=== PATIENT | female | born 1985 | race Caucasian/White ===

== ENCOUNTER 2023-12-22 13:34 | Outpatient (REF) | payer OTHER, SELFPAY ==
[2023-12-24 21:23] LABS: Venous Lead <1.0 mcg/dL (<3.5)
== END 2023-12-22 13:35 | disposition home or self-care (01) ==
LOC: HO.HMGCLDS 13:34
PROVIDERS: PCP Internal Medicine; Visit Provider Registered Nurse
DX: Z59.19 Other inadequate housing (principal); Z77.011 Contact with and (suspected) exposure to lead
CPT/HCPCS: 36415; 83655; 99212

== ENCOUNTER 2023-12-22 13:34 | Outpatient (AMB) | payer OTHER, SELFPAY ==
--- NOTE | 2023-12-22 13:36 | AM.OFFWIN_ITS ---
Intake Vital Signs 12/22/23 13:37 Height 5 ft 6 in Weight 126 lb BMI 20.3 BP 106/70 Blood Pressure Location Rt brachial Position Sitting Pulse 79 Pulse Source Pulse Oximeter Pulse Oximetry (%) 99 Intake Visit Reasons: [employer] Lead concerns Intake Note: pt is here for Lead concerns, patient would like testing Allergies No Known Allergies Allergy (Verified 12/22/23 13:37) Do you need a note to return to daycare/school/sports/work: No HPI [employer] Lead concerns HPI Details This note is constructed using voice recognition software. 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 The patient is a 38 year old female who presents to the clinic today with concerns for lead exposure. Patient reports that she received a letter from the [facility] stating that her home maybe surface by pipes that have led in them. The letter suggested that she have her water and pipes tested, however the pricing for the testing is very expensive, and she is unable to afford that at this time. She is concerned that she may have been exposed to lead, and wishes to be tested for this. She denies nausea, vomiting, memory issues. She does report chronic anxiety and some chronic headaches, but these have been ongoing for a long period of time. She currently does not have a primary care provider, and is having difficulty locating 1. Review of Systems Const All systems reviewed & are unremarkable except as noted in HPI and below Physical Exam Vital Signs: BMI result Body Mass Index 20.3 Const General: cooperative, healthy appearing, comfortable, no acute distress and well developed Orientation/consciousness: patient oriented x3 Limitations: no limitations Eyes General: appearance normal, both eyes and all related structures Resp Effort & Inspection: normal respiratory effort and able to speak in complete sentences Auscultation: clear to auscultation bilaterally Cardio Rate: regular rate Rhythm: regular rhythm Heart sounds: normal S1 and S2 GI Inspection: Yes normal to inspection Palpation (GI): Soft to palpation and nontender Skin General skin exam: no rashes or lesions noted Neuro General: patient oriented x3 Extrem General: Yes normal to inspection Assessment & Plan Assessment & Plan (1) 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 I reviewed with her the importance of having her home tested as well given that she may not show a level elevated if she has not been exposed for a long period of time, but could prevent that exposure by removing the source. Plan See above for full details and plan. Advised patient to speak with front end staff on exiting the office to determine whom may be accepting new patients for primary care providers. Orders: Orders Venous Lead Today Z59.19 - Other inadequate housing, Z77.011 - Contact with and (suspected) exposure to lead Coding Level of Care Code Est Pt Level 3 (06594) Diagnoses Lead in residence Z77.011; Z59.19
[2023-12-22 13:37] VITALS: BP 106/70; PULSE 79; O2SAT 99; BMI 20.3
== END 2023-12-22 14:56 | disposition home or self-care (01) ==
PROVIDERS: Visit Provider Registered Nurse
DX: Z77.011 Contact with and (suspected) exposure to lead (principal); Z59.19 Other inadequate housing

== ENCOUNTER 2023-12-30 11:53 | Outpatient (REF) | payer OTHER, SELFPAY ==
[2023-12-30 16:46] LABS: Influenza A PCR NEGATIVE (Negative); Influenza B PCR NEGATIVE (Negative); Resp Syncy Virus RNA Qual PCR NEGATIVE (Negative); SARS COV2 PCR INHOUSE NEGATIVE (Negative)
== END 2023-12-30 11:54 | disposition home or self-care (01) ==
LOC: HO.LAB 11:53
PROVIDERS: Visit Provider Physician Assistant
DX: J06.9 Acute upper respiratory infection, unspecified (principal); J02.9 Acute pharyngitis, unspecified; J04.0 Acute laryngitis
CPT/HCPCS: 0241U; 87070; 87147; 99202

== ENCOUNTER 2023-12-30 11:53 | Outpatient (AMB) | payer OTHER, SELFPAY ==
--- NOTE | 2023-12-30 12:01 | AM.OFFWIN_ITS ---
Intake Vital Signs 12/30/23 12:02 Height 5 ft 6 in Weight 126 lb BMI 20.3 BP 102/60 Blood Pressure Location Rt brachial Position Sitting Pulse 68 Pulse Source Pulse Oximeter Temp 98.4 F Temp Source Oral Pulse Oximetry (%) 98 Oxygen Delivery Method Room Air Intake Visit Reasons: EP-sore throat Intake Note: Patient here for sore throat that started yesterday Patient Tobacco Use Status: Never used Tobacco Allergies No Known Allergies Allergy (Verified 12/30/23 12:03) Do you need a note to return to daycare/school/sports/work: No HPI HPI Comments History of Present Illness Details The patient is a 38-year-old female presenting with a sore throat and mild cough. These symptoms began yesterday morning, initially feeling like irritation from mouth breathing during the night. Upon waking, the sore throat persisted and was noted to be erythematous upon inspection. The patient has experienced a constant need to clear her throat since onset. She reports an intermittent, mild cough but denies experiencing fever, significant nasal congestion, sinus pressure, headache, or earaches. She has a history of recurrent sinus issues but currently describes only minor sinus-related symptoms. The patient denies recent exposure to individuals with strep throat and is not employed in settings with children. She occasionally experiences postnasal drip but does not feel stuffy. The patient consumes hot tea with honey, popsicles, and throat lozenges for symptom relief. There are no reported modifications in symptoms from these measures. Rapid strep test results are negative, and a throat culture has been obtained. The patient has a history of tonsil stones but reports no current formation. She denies wheezing or shortness of breath. COVID-19 is considered, and testing has been performed. [facility] Social History Patient Tobacco Use Status: Never used Tobacco Review of Systems Const All systems reviewed & are unremarkable except as noted in HPI and below Physical Exam Vital Signs: Last Vital Signs Temp 98.4 F 12/30/23 12:02 Pulse 68 12/30/23 12:02 BP 102/60 12/30/23 12:02 Pulse Ox 98 12/30/23 12:02 Oxygen Delivery Method Room Air 12/30/23 12:02 BMI result Body Mass Index 20.3 General: Cooperative, healthy appearing, comfortable and no acute distress Orientation/consciousness: Patient oriented x3 Limitations: No limitations Head: Normal to inspection Ears: Hearing grossly normal bilaterally, external ears normal and TM's normal bilaterally Nose: Normal external nose present, Normal nares present and No nasal discharge present Face and sinus: Normal facial exam and Yes sinuses nontender Mouth: Normal oral and palatal mucosa present and moist mucous membranes Throat: Yes tonsils normal, Yes uvula midline. Posterior oropharynx erythema Eyes: Appearance normal, both eyes and all related structures Neck: Normal visual inspection Respirtory: Clear to auscultation bilaterally. Normal respiratory effort, able to speak in complete sentences, no respiratory distress, not tachypneic, no tripod positioning and no use of accessory muscles Cardiovascular: Regular rate and rhythm. Normal S1 and S2 Skin: No rashes or lesions noted Neuro: Patient oriented x3 Extremities: Normal to inspection and Yes no clubbing, cyanosis or edema Assessment & Plan Assessment & Plan (1) Acute viral laryngitis: Code(s): J04.0 - Acute laryngitis Plan: - Monitor symptoms and encourage supportive care including hydration, rest, and use of throat lozenges and warm fluids. - Rapid strep in office is negative. Await results of throat culture to rule out bacterial infection. If bacterial growth is detected, we will initiating antibiotic therapy. - COVID-19, flu and RSV testing has been completed; await results and manage accordingly if positive. - Advise patient to return if symptoms significantly worsen or new symptoms develop, especially fever or white oral lesions. Orders: Orders Throat Culture Today J02.9 - Acute pharyngitis, unspecified SARS-CoV2/FLU/RSV Today J06.9 - Acute upper respiratory infection, unspecified Coding Level of Care Code New Pt Level 3 (91314) Diagnoses Acute viral laryngitis J04.0
[2023-12-30 12:02] VITALS: BP 102/60; PULSE 68; TEMP 36.9; O2SAT 98; BMI 20.3
== END 2023-12-30 12:37 | disposition home or self-care (01) ==
PROVIDERS: Visit Provider Physician Assistant
DX: J04.0 Acute laryngitis (principal)

== ENCOUNTER 2023-12-31 11:39 | Outpatient (AMB) | payer OTHER, SELFPAY ==
--- NOTE | 2023-12-31 11:42 | MHC.OFFWIV ---
Intake Vital Signs 12/31/23 11:52 Height 5 ft 6 in Weight 126 lb BMI 20.3 BP 110/76 Blood Pressure Location Lt brachial Position Sitting Pulse 80 Pulse Source Pulse Oximeter Temp 98.2 F Temp Source Oral Pulse Oximetry (%) 98 Intake Visit Reasons: EP sore throat, ? sinus infection Intake Note: pt is here for sinus infection, stated throat feels better today Patient Tobacco Use Status: Never used Tobacco Allergies No Known Allergies Allergy (Verified 12/31/23 11:52) Do you need a note to return to daycare/school/sports/work: Yes HPI HPI Comments History of Present Illness Details 38 y/o female patient who presents to the clinic with c/o Sinus congestion and pressure since this morning. She was seen yesterday for Sore-throat and mild cough. She was diagnosed with laryngitis and throat culture still pending. Denies nausea, vomiting, fevers or chills. Denies SOB but it's hard to breath through nose due to congestion. Denies CP, or wheezing. She does report h/o Sinus infections in the past, where she is always prescribed Antibiotics with some good relief. Today wondering if she has another Sinus infection. [facility] Social History Patient Tobacco Use Status: Never used Tobacco Review of Systems Const All systems reviewed & are unremarkable except as noted in HPI and below Physical Exam Vital Signs: Last Vital Signs Temp 98.2 F 12/31/23 11:52 Pulse 80 12/31/23 11:52 BP 110/76 12/31/23 11:52 Pulse Ox 98 12/31/23 11:52 BMI result Body Mass Index 20.3 Const General: cooperative and no acute distress Nutritional Appearance: thin Orientation/consciousness: patient oriented x3 HEENT Head: Yes normocephalic Ears: external ears normal and TM abnormal with fluid behind the TM General nose exam: Abnormal mucous membranes and turbinates present boggy and erythematous and Nasal discharge present Face and sinus: Yes sinus tenderness Mouth: moist mucous membranes Resp Effort & Inspection: normal respiratory effort Auscultation: clear to auscultation bilaterally, no crackles, no rales, no rhonchi and no wheezes Cardio Heart sounds: S1 normal heart sound present and S2 normal heart sound present Neuro General: patient oriented x3 Assessment & Plan Assessment & Plan (1) URI (upper respiratory infection): Code(s): J06.9 - Acute upper respiratory infection, unspecified Qualifiers: URI type: unspecified URI Qualified Code(s): J06.9 - Acute upper respiratory infection, unspecified Plan: Throat culture still pending, if positive for Bacteria will Tx then Ordered Sudafed Advised the use of Vicks Vapor Rest, and hydrate well with warm fluids Acetaminophen for pain relief. Medications: New pseudoephedrine HCl ER (Sudafed 12 Hour) 120 mg PO Q12H 60 tabs 0RF J06.9 - Acute upper respiratory infection, unspecified Coding Level of Care Code Est Pt Level 3 (46720) Diagnoses Upper respiratory tract infection, unspecified type J06.9 URI type: unspecified URI Time Spent (min) 15
[2023-12-31 11:52] VITALS: BP 110/76; PULSE 80; TEMP 36.8; O2SAT 98; BMI 20.3
== END 2023-12-31 12:51 | disposition home or self-care (01) ==
PROVIDERS: Visit Provider Nurse Practitioner Family
DX: J06.9 Acute upper respiratory infection, unspecified (principal)

== ENCOUNTER → 2023-12-31 11:39 | Outpatient (BNVA) | payer OTHER, SELFPAY | PROVIDERS: Visit Provider Nurse Practitioner Family | DX: J06.9 Acute upper respiratory infection, unspecified (principal) | CPT/HCPCS: 99212 ==

== ENCOUNTER 2025-01-12 12:48 | Outpatient (AMB) | payer OTHER, SELFPAY ==
[2025-01-12 13:03] VITALS: BP 108/62; PULSE 71; TEMP 36.6; O2SAT 99; BMI 22.1
--- NOTE | 2025-01-12 13:03 | AM.OFFWIN_ITS ---
Intake Vital Signs 01/12/25 13:03 Height 5 ft 6 in Weight 137 lb BMI 22.1 BP 108/62 Blood Pressure Location Lt brachial Position Sitting Pulse 71 Pulse Source Pulse Oximeter Temp 98 F Temp Source Oral Pulse Oximetry (%) 99 Oxygen Delivery Method Room Air Intake Visit Reasons: EP Irriatted patch of skin on right hand Intake Note: Patient presents c/o ring shaped spot on knuckle of right index finger Patient Tobacco Use Status: Never used Tobacco Allergies No Known Allergies Allergy (Verified 01/12/25 13:06) Do you need a note to return to daycare/school/sports/work: No HPI EP Irriatted patch of skin on right hand HPI Details 39 year old female patient who presents with an itchy/reddened area on her right first knuckle for the last several days. She does have a history of dry skin and eczema, however this appears somewhat different and is not responding to her usual home remedies for eczema. No known exposure to any new products/chemicals/lotions. [facility] Social History Patient Tobacco Use Status: Never used Tobacco Review of Systems Const All systems reviewed & are unremarkable except as noted in HPI and below Physical Exam Vital Signs: Last Vital Signs Temp 98 F 01/12/25 13:03 Pulse 71 01/12/25 13:03 BP 108/62 01/12/25 13:03 Pulse Ox 99 01/12/25 13:03 Oxygen Delivery Method Room Air 01/12/25 13:03 BMI result Body Mass Index 22.1 Const General: cooperative, healthy appearing, comfortable and no acute distress Resp Effort & Inspection: normal respiratory effort Skin Other: area over first MCP joint on right hand with scaly/pruritic area with well- defined circular red border. Extrem General: Yes capillary refill normal and Yes no clubbing, cyanosis or edema Psych Appearance: grossly normal Mental Status: mental status grossly normal Speech and movement: Normal speech and movement present Assessment & Plan Assessment & Plan (1) Tinea corporis: Code(s): B35.4 - Tinea corporis Plan: Area on hand suspicious for tinea - antifungal cream sent and we reviewed use. (2) Eczema: Code(s): L30.9 - Dermatitis, unspecified Plan: It's possible this is an atypical presentation of her eczema - I have also sent her a topical corticosteroid cream, should the antifungal cream be inneffective. Patient and I discussed this and she verbalized understanding and agrees to plan discussed today. Medications: New clotrimazole 1% 1 appl topical BID 15 grams 1RF 2 weeks B35.4 - Tinea corporis triamcinolone acetonide 0.025% 1 appl topical BID 60 mL 0RF L30.9 - Dermatitis, unspecified Coding Level of Care Code Est Pt Level 4 (16892) Diagnoses Tinea corporis B35.4 Eczema L30.9
--- OUTSIDE RECORDS SUMMARY | 2025-01-12 16:38 | XMS_ITS ---
Author Name [facility] Organization Unknown Care Team Organization Name Specialty Phone Email Start Date End Da te [facility] [address] [facility] 12/16/2021 09/27/19 24
== END 2025-01-12 13:49 | disposition home or self-care (01) ==
PROVIDERS: Visit Provider Nurse Practitioner Family
DX: B35.4 Tinea corporis (principal); L30.9 Dermatitis, unspecified

== ENCOUNTER → 2025-01-12 12:48 | Outpatient (BNVA) | payer OTHER, SELFPAY | PROVIDERS: Visit Provider Nurse Practitioner Family | DX: B35.4 Tinea corporis (principal); L30.9 Dermatitis, unspecified | CPT/HCPCS: 99212 ==